=== PATIENT | female | born 1985 | race Two or more races ===

== ENCOUNTER 2019-07-31 17:35 | Observation (INO) | payer OTHER ==
[~2019-07-31] VITALS: Ht 160 cm; Wt 67.1 kg
[2019-07-31 18:50] LABS: CLARITY URINE CLEAR (CLEAR); COLOR URINE YELLOW (YELLOW); KETONES URINE NEGATIVE (NEGATIVE); LEUKOCYTE ESTERASE URINE 1+ (NEGATIVE); NITRITE URINE NEGATIVE (NEGATIVE); OCCULT BLOOD URINE NEGATIVE (NEGATIVE); PROTEIN URINE NEGATIVE (NEGATIVE); SPECIFIC GRAVITY URINE 1.005 (1.005-1.030); UROBILINOGEN URINE 0.2 E.U./dL (0.2-1.0)
[2019-07-31] MEDS ORDERED: LACTATED RINGERS 1,000 ML IV SCH (19:00)
[2019-07-31] MEDS: CEFAZOLIN 2,000 MG in DEXT 5% WATER 100 ML IV NR ×2 (20:23→20:32)
== END 2019-07-31 22:15 | disposition home or self-care (01) ==
LOC: 8 EST LDRP 17:35
PROVIDERS: ADMIT Obstetrics & Gynecology; ATTEND Obstetrics & Gynecology
DX: O62.9 Abnormality of forces of labor, unspecified (principal); O26.892 Other specified pregnancy related conditions, second trimester; R10.9 Unspecified abdominal pain; M54.5 Low back pain; Z3A.28 28 weeks gestation of pregnancy
CPT/HCPCS: 81003; 96365; 99281; G0378; J0690; J7060

== ENCOUNTER 2023-07-07 11:16 | Emergency (ER) | payer OTHER ==
[~2023-07-07] VITALS: Ht 162.6 cm; Wt 58.0 kg
[2023-07-07 11:20] VITALS: BP 120/69; PULSE 83; RESP 20; TEMP 99.1; O2SAT 98
== END 2023-07-07 16:01 | disposition home or self-care (01) ==
LOC: ER 11:16
DX: M25.512 Pain in left shoulder (principal); M25.511 Pain in right shoulder; M25.522 Pain in left elbow; M25.521 Pain in right elbow; M25.562 Pain in left knee; M25.561 Pain in right knee; M25.552 Pain in left hip; M25.551 Pain in right hip; M25.532 Pain in left wrist; M25.531 Pain in right wrist; M54.2 Cervicalgia
CPT/HCPCS: 99281